=== PATIENT | male | born 1960 | race Caucasian/White ===

== ENCOUNTER 2025-03-26 19:17 | Inpatient (IN) | payer MEDICARE, OTHER ==
[~2025-03-26] VITALS: Ht 175.3 cm; Wt 90.7 kg
[2025-03-26] MEDS ORDERED: ACET325C7 PO (20:10)
[2025-03-26] MEDS ORDERED: PANT40TA49 PO (20:10)
[2025-03-26] MEDS ORDERED: BISA10SU61 RC (20:10)
[2025-03-26] MEDS ORDERED: ASPI-1420 PO (20:10)
[2025-03-26] MEDS ORDERED: BACL10TA PO ×2 (20:10)
[2025-03-26] MEDS ORDERED: GABA-532 PO (20:10)
[2025-03-26] MEDS ORDERED: HYDR-3972 PO (20:10)
[2025-03-26] MEDS ORDERED: COLC0.6T67 PO (20:10)
[2025-03-26] MEDS ORDERED: DOCU100C36 PO (20:10)
[2025-03-26] MEDS ORDERED: ATOR40TA PO (20:10)
[2025-03-26] MEDS ORDERED: FOLI0.4T6 PO (20:10)
[2025-03-26] MEDS ORDERED: APIX5TAB PO (20:10)
[2025-03-26] MEDS ORDERED: TAMS-12 PO (20:10)
[2025-03-26] MEDS ORDERED: THIA100T74 PO (20:10)
[2025-03-26 20:43] LABS: PLATELET COUNT (AUTO) 154 K/uL (150-450); RED BLOOD CELL COUNT(AUTO) 4.59 MIL/uL (4.5-6.0); RED CELL DISTRIBUTION WIDTH 13.9 % (11.5-15.0); WHITE BLOOD COUNT (AUTO) 9.0 K/uL (4.3-11.0)
[2025-03-26 20:56] LABS: CALCIUM, SERUM 10.1 mg/dL (8.5-10.1); CREATININE 1.1 mg/dL (0.6-1.3); SODIUM SERUM 143 mmol/L (136-145); UREA NITROGEN, BLOOD 12 mg/dL (7-18)
[2025-03-26 21:02] LABS: ALCOHOL, BLOOD < 3 mg/dL (0-10); ASPARTATE AMINOTRANSFERASE 15 U/L (15-37); TOTAL PROTEIN, SERUM 7.3 g/dL (6.4-8.2)
[2025-03-26 21:19] LABS: APPEARANCE,URINE CLEAR (CLEAR); BLOOD, URINE 3+ Ery/uL (NEGATIVE); LEUKOCYTE ESTERASE ,URINE TRACE (NEGATIVE); NITRITE, URINE NEGATIVE (NEGATIVE); UGLUCOSE NEGATIVE (NEGATIVE)
[2025-03-26 21:36] LABS: ADD URINE CULTURE NO
[2025-03-26 21:37] LABS: SQUAMOUS EPITHELIAL CELL,UR None Seen /HPF (None Seen)
[2025-03-26 21:53] LABS: AMPHETAMINE, URINE NEGATIVE (NEGATIVE); BARBITURATE, URINE NEGATIVE (NEGATIVE); BENZODIAZEPINE, URINE NEGATIVE (NEGATIVE); CANNABINOID, URINE NEGATIVE (NEGATIVE); COCCAINE, URINE NEGATIVE (NEGATIVE)
[2025-03-26 21:55] LABS: OPIATE, URINE POSITIVE (NEGATIVE)
[2025-03-27] MEDS ORDERED: MAG HYDROX/AL HYDROX/SIMETH 30 ML UDC PO PRN (01:00)
[2025-03-27] MEDS ORDERED: ZOLPIDEM TARTRATE 5 MG TABLET PO PRN ×2 (01:00)
[2025-03-27] MEDS: BLOOD SUGAR DIAGNOSTIC 1 EACH STRIP IN ONE (01:23)
[2025-03-27] MEDS: NITROFURANTOIN/MONOHYDRATE MACROCRYSTALS 100 MG CAPSULE PO SCH (01:24)
[2025-03-27 01:51] VITALS: BP 151/75; TEMP 97.9; O2SAT 95
[2025-03-27 07:25] LABS: PLATELET COUNT (AUTO) 147 K/uL (150-450); RED BLOOD CELL COUNT(AUTO) 4.19 MIL/uL (4.5-6.0); RED CELL DISTRIBUTION WIDTH 13.7 % (11.5-15.0); WHITE BLOOD COUNT (AUTO) 6.8 K/uL (4.3-11.0)
[2025-03-27 08:00] VITALS: BP 127/76; TEMP 97.9; O2SAT 96
[2025-03-27] MEDS: COLCHICINE 0.6 MG TABLET PO SCH (08:35)
[2025-03-27] MEDS: FOLIC ACID 1 MG TABLET PO SCH (08:35)
[2025-03-27] MEDS: DOCUSATE SODIUM 100 MG CAPSULE PO SCH (08:35)
[2025-03-27] MEDS: ASPIRIN EC 81 MG TABLET.DR PO SCH (08:35)
[2025-03-27] MEDS: PANTOPRAZOLE 40 MG TABLET.DR PO SCH (08:35)
[2025-03-27] MEDS: THIAMINE HCL 100 MG TABLET PO SCH (08:36)
[2025-03-27] MEDS: GABAPENTIN 100 MG CAPSULE PO SCH (08:36)
[2025-03-27] MEDS: APIXABAN 5 MG TABLET PO SCH (08:38)
[2025-03-27 08:44] LABS: CALCIUM, SERUM 9.8 mg/dL (8.5-10.1); CREATININE 1.3 mg/dL (0.6-1.3); SODIUM SERUM 145.0 mmol/L (136-145); UREA NITROGEN, BLOOD 12.0 mg/dL (7-18)
[2025-03-27] MEDS ORDERED: DICL100G26 TP (08:44)
[2025-03-27] MEDS ORDERED: NA P133E RC (08:44)
[2025-03-27] MEDS ORDERED: SIME80TA15 PO (08:44)
[2025-03-27] MEDS ORDERED: POLY17PO4 PO (08:44)
[2025-03-27] MEDS ORDERED: ACET325T53 PO (08:44)
[2025-03-27] MEDS ORDERED: MAGN400O6 PO (08:44)
[2025-03-27] MEDS ORDERED: SENN-261 PO (08:44)
[2025-03-27 16:00] VITALS: BP 125/75; TEMP 98.1; O2SAT 98
[2025-03-27] MEDS: ACETAMINOPHEN 325 MG TABLET PO PRN (16:40)
[2025-03-27] MEDS: MAGNESIUM HYDROXIDE 30 ML UDC PO PRN (16:41)
[2025-03-27] MEDS: ATORVASTATIN 40 MG TABLET PO SCH (17:49)
[2025-03-27] MEDS: TAMSULOSIN 0.4 MG CAP.SR.24H PO SCH (21:23)
[2025-03-27] MEDS: LACTULOSE 10 G/15 ML UDC (PYXIS) PO PRN (21:24)
[2025-03-27] MEDS: QUETIAPINE FUMARATE 25 MG TABLET PO SCH (21:24)
[2025-03-28 07:20] LABS: CREATININE 1.1 mg/dL (0.6-1.3)
[2025-03-28 07:27] LABS: LDL 49 mg/dL (0-99)
[2025-03-28 07:32] LABS: ASPARTATE AMINOTRANSFERASE 14.0 U/L (15-37); CALCIUM, SERUM 9.5 mg/dL (8.5-10.1); CREATININE 1.1 mg/dL (0.6-1.3); SODIUM SERUM 147.0 mmol/L (136-145); TOTAL PROTEIN, SERUM 6.1 g/dL (6.4-8.2); UREA NITROGEN, BLOOD 12.0 mg/dL (7-18)
[2025-03-28 08:00] VITALS: BP 130/85; TEMP 97.8; O2SAT 96
[2025-03-28 16:00] VITALS: BP 126/65; TEMP 98.8; O2SAT 100
[2025-03-28] MEDS: QUETIAPINE FUMARATE 25 MG TABLET PO SCH (21:25)
[2025-03-29 08:00] VITALS: BP 142/91; TEMP 98.7; O2SAT 98
[2025-03-29] MEDS: BACLOFEN (10 MG) 10 MG TABLET PO SCH (12:47)
[2025-03-29] MEDS: HYDROCODONE/APAP 5/325MG TABLET PO SCH (12:47)
[2025-03-29 16:21] VITALS: BP 157/101; TEMP 98.1; O2SAT 99
[2025-03-29 20:06] VITALS: BP 127/77; TEMP 98.3; O2SAT 96
[2025-03-30 08:00] VITALS: BP 133/71; TEMP 97.5; O2SAT 95
[2025-03-30] MEDS: CLOTRIMAZOLE 1% 15 GM TUBE TP SCH (08:30)
[2025-03-30] MEDS: QUETIAPINE FUMARATE 25 MG TABLET PO PRN (14:32)
[2025-03-30 16:00] VITALS: BP 120/71; TEMP 97.9; O2SAT 96
[2025-03-30 20:31] VITALS: BP 131/88; TEMP 97.9; O2SAT 97
[2025-03-31 07:50] LABS: PLATELET COUNT (AUTO) 166 K/uL (150-450); RED BLOOD CELL COUNT(AUTO) 4.45 MIL/uL (4.5-6.0); RED CELL DISTRIBUTION WIDTH 13.9 % (11.5-15.0); WHITE BLOOD COUNT (AUTO) 7.1 K/uL (4.3-11.0)
[2025-03-31 08:00] VITALS: BP 139/81; TEMP 98; O2SAT 97
[2025-03-31 09:02] LABS: CALCIUM, SERUM 9.5 mg/dL (8.5-10.1); CREATININE 1.0 mg/dL (0.6-1.3); PHOSPHORUS 2.3 mg/dL (2.5-4.9); SODIUM SERUM 144.0 mmol/L (136-145); UREA NITROGEN, BLOOD 16.0 mg/dL (7-18)
[2025-03-31 15:57] VITALS: BP 123/72; TEMP 98.6; O2SAT 97
[2025-03-31 19:34] VITALS: BP 145/75; TEMP 98.3; O2SAT 98
[2025-04-01 08:00] VITALS: BP 131/82; TEMP 98.1; O2SAT 97
[2025-04-01 15:58] VITALS: BP 133/84; TEMP 98.4; O2SAT 96
[2025-04-01 19:59] VITALS: BP 138/95; TEMP 98.4; O2SAT 98
[2025-04-02 08:00] VITALS: BP 130/76; TEMP 98.6; O2SAT 99
[2025-04-02 16:00] VITALS: BP 120/76; TEMP 98.4; O2SAT 95
[2025-04-02 19:49] VITALS: BP 126/77; TEMP 97.9; O2SAT 97
[2025-04-03 08:00] VITALS: BP 122/77; TEMP 98; O2SAT 96
[2025-04-03 16:00] VITALS: BP 146/88; TEMP 97.7; O2SAT 97
[2025-04-03 19:38] VITALS: BP 126/74; TEMP 97.8; O2SAT 98
[2025-04-04 08:00] VITALS: BP 130/87; TEMP 97.6; O2SAT 96
[2025-04-04 16:00] VITALS: BP 120/81; TEMP 97.3; O2SAT 95
[2025-04-04 20:37] VITALS: BP 142/85; TEMP 97.9; O2SAT 96
[2025-04-04 22:17] VITALS: BP 130/73; TEMP 97.8; O2SAT 98
[2025-04-05 08:00] VITALS: BP 127/77; TEMP 97.5; O2SAT 97
[2025-04-05] MEDS: TOBRAMYCIN/DEXAMETH OPHTH DORPS 2.5 ML BOTTLE RIGHTEYE SCH (11:26)
[2025-04-05 16:00] VITALS: BP 109/78; TEMP 97.9; O2SAT 95
[2025-04-05 20:14] VITALS: BP 135/93; TEMP 97.9; O2SAT 98
[2025-04-06 08:00] VITALS: BP 131/82; TEMP 97.7; O2SAT 96
[2025-04-06 16:11] VITALS: BP 106/77; TEMP 97.9; O2SAT 98
[2025-04-06 20:32] VITALS: BP 121/88; TEMP 97.9; O2SAT 97
[2025-04-07 08:00] VITALS: BP 105/61; TEMP 97.8; O2SAT 96
[2025-04-07] MEDS: TOBRAMYCIN/DEXAMETH OPHTH DORPS 2.5 ML BOTTLE EACHEYE SCH (12:52)
[2025-04-07 16:00] VITALS: BP 131/87; TEMP 98.2; O2SAT 98
[2025-04-07 19:45] VITALS: BP 130/75; TEMP 98.1; O2SAT 98
[2025-04-08 08:00] VITALS: BP 123/77; TEMP 97.8; O2SAT 99
== END 2025-04-08 11:47 | DRG 885 ==
LOC: ER 19:23 → GPS 23:59
PROVIDERS: ADMIT Psychiatry & Neurology Psychiatry
DX: F39 Unspecified mood [affective] disorder (principal); I11.0 Hypertensive heart disease with heart failure; I48.20 Chronic atrial fibrillation, unspecified; I50.32 Chronic diastolic (congestive) heart failure; R45.851 Suicidal ideations; I69.354 Hemiplegia and hemiparesis following cerebral infarction affecting left non-dominant side; F33.9 Major depressive disorder, recurrent, unspecified; K21.9 Gastro-esophageal reflux disease without esophagitis; N40.0 Benign prostatic hyperplasia without lower urinary tract symptoms; D50.9 Iron deficiency anemia, unspecified; E78.5 Hyperlipidemia, unspecified; H10.89 Other conjunctivitis; K59.00 Constipation, unspecified; M10.9 Gout, unspecified; Z79.01 Long term (current) use of anticoagulants; Z95.0 Presence of cardiac pacemaker; Z20.822 Contact with and (suspected) exposure to COVID-19; F31.30 Bipolar disorder, current episode depressed, mild or moderate severity, unspecified; F19.10 Other psychoactive substance abuse, uncomplicated
CPT/HCPCS: 36415; 76700-TC; 80048-TC; 80053-TC; 80061-TC; 80076-TC; 81001; 82565-TC; 82962-TC; 83735-TC; 84100-TC; 85025-TC; 87081-TC; 87086-TC; 97110-TC; 97116-TC; 97530-TC; G0480